=== PATIENT | female | born 1980 | race Caucasian/White ===

== ENCOUNTER 2024-03-24 08:14 | Outpatient (OUT) | payer MEDICAID, SELFPAY | END 2024-03-24 08:15 | disposition home or self-care (01) | PROVIDERS: PCP Family Medicine; Visit Provider Obstetrics & Gynecology | DX: R10.2 Pelvic and perineal pain (principal); R39.9 Unspecified symptoms and signs involving the genitourinary system | CPT/HCPCS: 87086 ==

== ENCOUNTER 2024-04-18 08:09 | Outpatient (OUT) | payer MEDICAID, SELFPAY ==
--- OUTSIDE RECORDS SUMMARY | 2024-04-18 08:16 | XMS_ITS | CCD ---
Author Organization [facility] Care Team Providers Care Tattooer Name Role Phone MARIE BERKOWITZ Consulting Unavailable EMILY MARIE A Attending Unavailable EMILY, MARIE A Admitting Unavailable EMILY, MARIE A Primary Care Unavailable Marie Berkowitz MD Primary Care Provider EMILY MARIE A Primary Care Unavailable MANUELA ESPOSITO Attending Unavailable MANUELA ESPOSITO Attending Unavailable MANUELA ESPOSITO Referring Unavailable BERKOWITZ, MARIE A Primary Care Unavailable MANUELA ESPOSITO Attending Unavailable MANUELA ESPOSITO Referring Unavailable BERKOWITZ, MARIE A Primary Care Unavailable BERKOWITZ, MARIE A Referring Unavailable BERKOWITZ, MARIE A Primary Care Unavailable NESSA KELLEY Referring Unavailable BERKOWITZ, MARIE A Primary Care Unavailable ELLY LUNA Attending Unavailable ELLY LUNA Attending Unavailable Problems Problem Classification Problem Date Documented Da te Episodic/Chronic Abdominal pain (3 sources) Pelvic and perineal pain; Translations: [Flank pain] Onset: 02-08-2024 Episodic Anxiety disorders (1 source) Generalized anxiety disorder; Translations: [Generalized anxiety disorder] Onset: 01-03-2020 01-03-2020 Chronic Benign neoplasm of uterus (1 source) Leiomyoma of uterus, unspecified; Translations: [Leiomyoma of uterus, unspecified] Onset: 02-08-2024 Episodic Fever of unknown origin (1 source) Fever, unspecified; Translations: [FEVER UNSPECIFIED] Onset: 06-20-2020 Episodic Headache; including migraine (1 source) Headache; including migraine; Translations: [HEADACHE UNSPECIFIED] Onset: 06-20-2020 Immunizations and screening for infectious disease (3 sources) Contact with and (suspected) exposure to other viral communicable diseases; Translations: [CONTCT EXPS OTH VIRL COMMUNICABL DZ] Onset: 06-11-2020 Episodic Mood disorders (1 source) Mild major depression, single episode; Translations: [Major depressive disorder, single episode, mild] Onset: 01-03-2020 01-03-2020 Chronic Other non-traumatic joint disorders (1 source) Pain in left hip; Translations: [Pain in left hip] Onset: 02-29-2024 Episodic Other upper respiratory infections (1 source) Acute pharyngitis, unspecified; Translations: [ACUTE PHARYNGITIS UNSPECIFIED] Onset: 06-20-2020 Episodic Residual codes; unclassified (1 source) Pain, unspecified; Translations: [PAIN UNSPECIFIED] Onset: 06-20-2020 Unclassified (1 source) COVID-19; Translations: [COVID-19] Onset: 06-20-2020 Unclassified (1 source) Low back pain, unspecified; Translations: [Low back pain, unspecified] Onset: 02-29-2024 Results Test Name Value Interpretation Reference Range Facil ity XR HIP LT 2-3 VIEWS W OR WO PELVISon 03-01-2024 XR HIP LT 2-3 VIEWS W OR WO PELVIS XR HIP LT 2-3 VIEWS W OR WO PELVIS History: Left hip pain Exam/Technique: AP pelvis and AP and frog-leg views of the left hip were obtained. Comparison: None Findings: There is no evidence for an acute osseous abnormality. No significant degenerative changes are seen. No destructive processes are identified. IMPRESSION: Normal pelvis and left hip. Finalized by Catalino Wilkins MD on 03/01/2024 1:20 PM Normal [facility] XR SPINE LUMBAR 2 OR 3 VWSon 03-01-2024 XR SPINE LUMBAR 2 OR 3 VWS XR SPINE LUMBAR 2 OR 3 VWS CLINICAL INFORMATION: Low back pain, unspecified back pain laterality, unspecified chronicity, unspecified whether sciatica present TECHNIQUE: XR SPINE LUMBAR 2 OR 3 VWS 3 views lumbar spine were obtained. Disc spaces are preserved. Endplates appear intact. No acute fracture. Sacral ala unremarkable. Solitary somewhat prominent loops of small bowel project over the left mid abdomen IMPRESSION:. No acute osseous abnormality. Solitary nonspecific prominent loop of small bowel within left mid abdomen. Finalized by Virgilio Corona MD on 03/01/2024 11:20 AM Normal [facility] BASIC METABOLIC PANLon 07-22 -2024 Anion gap [Moles/Vol] 9 mmol/L Normal 5-15 [facility] Comment on above: Performed By: #### B MARIBEL DOE #### [facility] ([id number]) [address] [place] [address] 33504 Calcium [Mass/Vol] 8.6 mg/dL Normal 8.5-10.5 [facility] Comment on above: Performed By: #### B NADER, CBCA #### [facility] ([id number]) [address] [place] [address] 27740 Chloride [Moles/Vol] 103 mmol/L Normal 98-109 [facility] Comment on above: Performed By: #### B NADER, CBCA #### [facility] ([id number]) [address] [place] [address] 04780 CO2 [Moles/Vol] 24 mmol/L Normal 22-32 [facility] Comment on above: Performed By: #### B NADER CBCA #### [facility] ([id number]) [address] [place] [address] 33423 Creatinine [Mass/Vol] 0.70 mg/dL Normal 0.40-1.00 [facility] Comment on above: Result Comment: METH OD TRACEABLE TO IDMS STANDARD Performed By: #### B NADER CBCA #### [facility] ([id number]) [address] [place] [address] 46201 eGFR (CKD-EPI) NON-RACE DEPENDENT >90 Normal >59 [facility] Comment on above: Result Comment: Reported eGFR is based on the CKD-EPI 2020 equation that does not use a race coefficient. Performed By: #### B NADER, CBCA #### [facility] ([id number]) [address] [place] [address] 41729 Glucose [Mass/Vol] 115 mg/dL High 65-99 [facility] Comment on above: Performed By: #### B MP, CBCA #### [facility] ([id number]) [address] [place] [address] 86588 Potassium [Moles/Vol] 3.9 mmol/L Normal 3.5-5.0 [facility] Comment on above: Result Comment: SPEC IMEN HEMOLYZED, RESULTS INCREASED Performed By: #### B MP, CBCA #### [facility] ([id number]) [address] [place] [address] 80594 Sodium [Moles/Vol] 136 mmol/L Normal 134-146 [facility] Comment on above: Performed By: #### B MP, CBCA #### [facility] ([id number]) [address] [place] [address] 10638 Urea nitrogen [Mass/Vol] 21 mg/dL Normal 5-23 [facility] Comment on above: Performed By: #### B MP, CBCA #### [facility] ([id number]) [address] [place] [address] [place] [address] CBC AND AUTO DIFFon 02-08-20 24 ABSOLUTE BASOPHIL 0.1 X10E9/L Normal 0.0-0.2 [facility] Comment on above: Performed By: #### B MP, CBCA #### [facility] ([id number]) [address] [place] [address] [place] [address] ABSOLUTE NEUTROPHIL 5.9 X10E9/L Normal 1.5-6.6 [facility] Comment on above: Performed By: #### B MP, CBCA #### [facility] ([id number]) [address] [place] [address] 15202 Basophils/100 WBC (Bld) 1.0 % Normal [facility] Comment on above: Performed By: #### B MP, CBCA #### [facility] ([id number]) [address] [place] [address] 32768 Eosinophils (Bld) [#/Vol] 0.1 10*3/uL Normal 0.0-0.4 [facility] Comment on above: Performed By: #### B MP, CBCA #### [facility] ([id number]) [address] [place] [address] 61150 Eosinophils/100 WBC (Bld) 1.4 % Normal [facility] Comment on above: Performed By: #### B MP, CBCA #### [facility] ([id number]) [address] [place] [address] 80743 Erythrocyte distribution width (RBC) [Ratio] 13.2 % Normal 11.5-15.0 [facility] Comment on above: Performed By: #### B NADER, CBCA #### [facility] ([id number]) [address] [place] [address] 90500 Hematocrit (Bld) [Volume fraction] 39.0 % Normal 35-47 [facility] Comment on above: Performed By: #### B NADER, CBCA #### [facility] ([id number]) [address] [place] [address] 48066 Hemoglobin (Bld) [Mass/Vol] 13.7 g/dL Normal 11.7-15.5 [facility] Comment on above: Performed By: #### B MP, CBCA #### [facility] ([id number]) [address] [place] [address] 65401 Lymphocytes (Bld) [#/Vol] 2.7 10*3/uL Normal 1.0-3.5 [facility] Comment on above: Performed By: #### B MP, CBCA #### [facility] ([id number]) [address] [place] [address] 54776 Lymphocytes/100 WBC (Bld) 28.9 % Normal [facility] Comment on above: Performed By: #### B MP, CBCA #### [facility] ([id number]) [address] [place] [address] 01695 MCH (RBC) [Entitic mass] 30.3 pg Normal 27-34 [facility] Comment on above: Performed By: #### B MP, CBCA #### [facility] ([id number]) [address] [place] [address] 64919 MCHC (RBC) [Mass/Vol] 35.2 g/dL Normal 32-36 [facility] Comment on above: Performed By: #### B MP, CBCA #### [facility] ([id number]) [address] [place] [address] 08342 MCV (RBC) [Entitic vol] 86 fL Normal 80-100 [facility] Comment on above: Performed By: #### B MP, CBCA #### [facility] ([id number]) [address] [place] [address] 31351 Monocytes (Bld) [#/Vol] 0.5 10*3/uL Normal 0-0.9 [facility] Comment on above: Performed By: #### B MP, CBCA #### [facility] ([id number]) [address] [place] [address] 41409 Monocytes/100 WBC (Bld) 5.2 % Normal [facility] Comment on above: Performed By: #### B MP, CBCA #### [facility] ([id number]) [address] [place] [address] 93280 Neutrophils/100 WBC (Bld) 63.5 % Normal [facility] Comment on above: Performed By: #### B MP, CBCA #### [facility] ([id number]) [address] [place] [address] 81967 Platelet mean volume (Bld) [Entitic vol] 7.8 fL Normal 7-12 [facility] Comment on above: Performed By: #### B MP, CBCA #### [facility] ([id number]) [address] [place] [address] 68066 Platelets (Bld) [#/Vol] 365 10*3/uL Normal 150-450 [facility] Comment on above: Performed By: #### B MP, CBCA #### [facility] ([id number]) [address] [place] [address] 28285 RBC COUNT 4.53 X10E12/L Normal 3.80-5.20 [facility] Comment on above: Performed By: #### B MP, CBCA #### [facility] ([id number]) [address] [place] [address] 76528 WBC (Bld) [#/Vol] 9.3 10*3/uL Normal 4.0-11.0 [facility] Comment on above: Performed By: #### B MP, CBCA #### [facility] ([id number]) [address] [place] [address] ABDOMEN AND PELVIS WO CON Ton 02-08-2024 CT ABDOMEN AND PELVIS WO CONT CT ABDOMEN AND PELVIS WO CONT CLINICAL INFORMATION: Abdominal/flank pain, stone suspected. TECHNIQUE: CT Abdomen and Pelvis without intravenous contrast. All CT scans at this facility use dose modulation, iterative reconstruction, and/or weight based dosing when appropriate to reduce radiation dose to as low as reasonably achievable. COMPARISON: 01/03/2023. FINDINGS: Assessment in the absence of intravenous contrast is suboptimal, especially with respect to vasculature, metastatic disease, and infectious precesses [if clinically relevant]. Despite this constraint, best attempt is made: No acute findings lower thorax. Marked hepatic steatosis, nodular area of fatty sparing in the left hepatic lobe adjacent to falciform ligament, 4.6 cm, additional nodular hyperdense lesion within segment 8, 1.4 cm. No overt morphologic features of cirrhosis. Normal spleen, adrenal glands, pancreas. Distended gallbladder, without adjacent inflammatory change. Unremarkable uterus. No adnexal mass. No dilatation or wall thickening the bowel. Normal appendix. No free fluid or fluid collections. No aggressive osseous lesions. Degenerative changes left greater than right sacroiliac joints. Fatty periumbilical hernia. IMPRESSION: * Marked hepatic steatosis, finding is nonspecific but may be seen in setting of toxicity, such as from alcohol. Multifocal nodular areas of relative fatty sparing [notably within segment 3, adjacent to falciform ligament, 4.6 cm]. Presumed underlying lesions, such as adenomas or focal nodular hyperplasia . Recommend abdomen MR, specifically with Eovist. * Distended gallbladder, possibly related to prolonged postprandial status, no adjacent inflammatory change to definitively suggest acute cholecystitis [however early cholecystitis is possible]. If clinically indeterminate, recommend HIDA. Finalized by Moises Carrasco MD on 02/08/2024 12:13 PM Normal [facility] HCG ( test) Ql (U)o n 02-08-2024 Beta HCG ( test) Ql (U) Negative Normal [facility] Comment on above: Performed By: #### 2 106-3 #### [facility] ([id number]) [address] [place] [address] 69078 URN MACROSCOPIC NURon 2023 BILIRUBIN VIRGIL Negative Normal [facility] Comment on above: Performed By: #### N UM #### [facility] ([id number]) [address] [place] [address] 06770 BLOOD/HGB VIRGIL Small Abnormal [facility] Comment on above: Performed By: #### N UM #### [facility] ([id number]) [address] [place] [address] 59819 GLUCOSE VIRGIL Negative Normal [facility] Comment on above: Performed By: #### N UM #### [facility] ([id number]) [address] [place] [address] 11908 KETONES VIRGIL Negative Normal [facility] Comment on above: Performed By: #### N UM #### [facility] ([id number]) [address] [place] [address] 26314 LEUKOCYTE ESTERASE VIRGIL Negative Normal NEG [facility] Comment on above: Performed By: #### N UM #### [facility] ([id number]) [address] [place] [address] 17191 NITRITE VIRGIL Negative Normal NEG [facility] Comment on above: Performed By: #### N UM #### [facility] ([id number]) [address] [place] [address] 95123 PH VIRGIL 6.0 Normal 5.0-8.5 [facility] Comment on above: Performed By: #### N UM #### [facility] ([id number]) [address] [place] [address] 59328 PROTEIN VIRGIL Negative Normal NEG [facility] Comment on above: Performed By: #### N UM #### [facility] ([id number]) [address] [place] [address] 62932 SPECIFIC GRAVITY VIRGIL >=1.030 Normal 1.003-1.035 [facility] Comment on above: Performed By: #### N UM #### [facility] ([id number]) [address] [place] [address] 47979 UROBILINOGEN VIRGIL 0.2 eu/dL Normal <1.1 [facility] Comment on above: Performed By: #### N UM #### [facility] ([id number]) [address] [place] [address] 47586 US PELVIC WITH TRANSVAGINAL AND DUPLEXon 02-08-2024 US PELVIC WITH TRANSVAGINAL AND DUPLEX US PELVIC WITH TRANSVAGINAL AND DUPLEX CLINICAL INFORMATION: left pelvic pain, Evaluate for Ovarian Torsion. TECHNIQUE: Real-time transabdominal and transvaginal sonographic evaluation of the pelvis was performed with john scale and color flow imaging. Transabdominal imaging performed to evaluate for extra adnexal pelvic pathology. Transvaginal imaging performed for better delineation of the adnexal and endometrial contents. Real time john scale, color flow imaging and duplex spectral Doppler waveform analysis evaluation was performed of the major arterial inflow and venous outflow structures of the ovaries with arterial and venous spectral waveforms obtained and reviewed in view of the clinical history of left pelvic pain, Evaluate for Ovarian Torsion . Duplex spectral Doppler document arterial and venous spectral waveforms documented within the major arterial inflow and venous outflow of both ovaries. Arterial and venous Doppler duplex spectral waveforms were evaluated. COMPARISON: 01/01/2023 FINDINGS: Uterus measured 11.5 x 5.0 x 6.0 cm in size. There is a fibroid with measuring 5.0 x 4.3 x 4.5 cm in size previously measuring 3.2 x 2.3 x 2.6 cm in size. The endometrium measures 6 mm in thickness. There are nabothian cysts in the cervix. The right ovary measures 3.1 x 1.7 2.1 cm in size and left ovary measure 1.6 x 1.4 x 1.5 cm in size. The arterial and venous waveforms are within normal limits. There is no evidence of ovarian torsion. No free fluid is seen IMPRESSION: * No evidence of ovarian torsion. * Uterine fibroid increased in size when compared to the prior study Finalized by Christine Albarado DO on 02/08/2024 11:21 AM Normal [facility] COVID-19 PCRon 06-13-2020 SARS-CoV-2, GRACE Detected Abnormal Not Detected [facility] Comment on above: Result Comment: This nucleic acid amplification test was developed and its performance characteristics determined by [facility]. Nucleic acid amplification tests include PCR and TMA. This test has not been FDA cleared or approved. This test has been authorized by FDA under an Emergency Use Authorization (EUA). This test is only authorized for the duration of time the declaration that circumstances exist justifying the authorization of the emergency use of in vitro diagnostic tests for detection of SARS-CoV-2 virus and/or diagnosis of COVID-19 infection under section 564(b)(1) of the Act, 21 U.S.C. 360bbb-3(b) (1), unless the authorization is terminated or revoked sooner. When diagnostic testing is negative, the possibility of a false negative result should be considered in the context of a patient's recent exposures and the presence of clinical signs and symptoms consistent with COVID-19. An individual without symptoms of COVID-19 and who is not shedding SARS-CoV-2 virus would expect to have a negative (not detected) result in this assay. Performed By: #### C VDPCR #### [facility] [address], [place] [address] Lily Valencia Encounters Encounter Date Encounter Type Care Provider Facility Start: 04-07-2024 End: 04-07-2024 ambulatory ELLY JEREMY Not Available Start: 03-07-2024 End: 03-07-2024 ambulatory ELLY JEREMY Not Available Start: 02-29-2024 End: 02-29-2024 ambulatory [facility] Start: 02-08-2024 End: 02-09-2024 Emergency department patient visit [facility] Start: 02-08-2024 End: 02-09-2024 Emergency department patient visit [facility] Start: 02-08-2024 End: 02-08-2024 Emergency department patient visit [facility] Start: 07-16-2023 Telephone encounter No Pcp No [facility] Start: 06-11-2020 End: 06-12-2020 Patient encounter procedure [facility] Facility:H1 Plan of Treatment Date Care Activity Detail Author Start: 06-29-2024 Adult BMI Screening Adult BMI Screen ing [facility] Start: 02-07-2024 DTaP,Tdap and Td Vaccines (2 - Td or Tdap) DTaP,Tdap and Td Vaccines (2 - Td or Tdap) [facility] Start: 01-02-2024 Tobacco Screening Tobacco Screening [facility] Start: 03-20-2023 COVID-19 Vaccine ( season) COVID-19 Vaccine () [facility] Start: 03-20-2023 Influenza vaccination Influenza Vacc ine [facility] Start: 2002 Screening for malign ant neoplasm of cervix Pap Smear [facility] Start: 1999 Adult BMI Follow Up Plan Adult BMI Follow Up Plan [facility] Start: 1993 [facility] Immunization Date Immunization Notes Care Provider Fa cility 11-20-2020 COVID-19, mRNA, LNP- S, PF, 100mcg/0.5mL Dose No No Pcp [facility] 10-23-2020 COVID-19, mRNA, LNP- S, PF, 100mcg/0.5mL Dose No No Pcp [facility] 05-14-2018 influenza virus vacc ine, unspecified formulation No No Pcp [facility] Payers Date Payer Category Payer Medicaid [employer] MEDICAID [employer] [facility] MEDICAID [id number] 2023-[facility] [phone] [address] [address] [place] [address] [id number] 2023 Medicaid [id number] 1981 Unknown [id number] 1981 Unknown [id number] 1981 Unknown [id number] 1981 Unknown [id number] 1981 Unknown [id number] 1981 Unknown [id number] 1981 Unknown [id number] 1981 Unknown [id number] 1959 Unknown [id number] Social History Date Type Detail Facility Start: 09-07-2020 Tobacco smoking stat us NHIS Never smoked tobacco [facility] Start: 09-07-2020 Tobacco use and exposure Smoke less tobacco non-user [facility] Start: 01-01-2023 Alcohol intake Current drinke r of alcohol (finding) [facility] Start: 07-31-2020 End: 01-01-2023 History of Social function [facility] Start: 07-31-2020 End: 01-01-2023 Tobacco use panel [facility] Housing Instability Unknown [facility] Start: 09-07-2020 Alcohol Comment socially [facility] Start: 1980 Sex Assigned At Not on file P [facility] Note 07-16-2023 Telephone Encounter - Kendy Castro - 07/16/2023 11:13 AM EST Note Date & Type Note Facility 07-16-2023 Miscellaneous Notes Formattin g of this note might be different from the original. Spoke with Pt regarding referral sent from Marie Berkowitz advising her insurance, [employer], is out of network with [facility]. Advised Pt we could still see her, but she may receive a bill. Advised she can call Medicaid & switch to any other Managed Health Plan, but not sure which ones her PCP accepts. Pt states she will call & find out. Also offered to contact PCP's Office to let them know Pt's insurance is out of network & have them refer her to another [employer]. documented in this encounter [facility] Telephone encounter Note 07-16-2023 Telephone Encounter - Kendy Castro - 07/16/2023 11:13 AM EST Note Date & Type Note Facility 07-16-2023 Telephone encount er Note Spoke with Pt regarding referral sent from Marie Berkowitz advising her insurance, [employer], is out of network with [facility]. Advised Pt we could still see her, but she may receive a bill. Advised she can call Medicaid & switch to any other Managed Health Plan, but not sure which ones her PCP accepts. Pt states she will call & find out. Also offered to contact PCP's Office to let them know Pt's insurance is out of network & have them refer her to another [employer]. [employer] Instructions Note Date & Type Note Facility Instructions Not on filedocumented in this en counter [employer] [facility] Summary Purpose Family History No Family History Records FoundNo Family History Records FoundNo Family History Records Found Advance Directives No Advanced Directives Records FoundNo Advanced Directives Records FoundNo Advanced Directives Records Found Additional Source Comments INFORMATION SOURCE (unrecogn ized section and content) DATE CREATED AUTHOR 06/20/2020 [facility] DATE CREATED AUTHOR AUTHOR'S ORGANIZ ATION 03/02/2024 [facility] DATE CREATED AUTHOR AUTHOR'S ORGANIZ ATION 04/09/2024 [facility] Specialists EPIC Care Teams (unrecognized sec tion and content) Tattooer Relationship Specialty Start Date End Date Marie Berkowitz MD [address] [place] [phone] PCP - General Family Medicine 02/25/17 FOR RECORDS PERTAINING TO PATIENTS WHO ARE OR HAVE BEEN ENROLLED IN A CHEMICAL DEPENDENCY/SUBSTANCEABUSE PROGRAM, SOME INFORMATION MAY BE OMITTED. This clinical summary was aggregated from multiple sources. Caution should be exercised in using it in the provision of clinical care. This summary normalizes information from multiple sources, and as a consequence, information in this document may materially change the coding, format and clinical context of patient data. In addition, data may be omitted in some cases. CLINICAL DECISIONS SHOULD BE BASED ON THE PRIMARY CLINICAL RECORDS. [employer] provides no warranty or guarantee of the accuracy or completeness of information in this document.
== END 2024-04-18 08:10 | disposition home or self-care (01) ==
LOC: PST 08:10
PROVIDERS: PCP Family Medicine; Visit Provider Obstetrics & Gynecology
DX: Z01.818 Encounter for other preprocedural examination (principal); R10.2 Pelvic and perineal pain; D25.9 Leiomyoma of uterus, unspecified

== ENCOUNTER 2024-04-29 09:07 | Day surgery (SDC) | payer MEDICAID, SELFPAY ==
[2024-04-18 08:40] VITALS: BP 111/73; PULSE 72; TEMP 36.3; O2SAT 99; BMI 34.7
[2024-04-29] VITALS (18 sets, daily range): BP systolic 96–121; BP diastolic 52–82; PULSE 54–81; TEMP 36.1–36.4; O2SAT 93–100; BMI 34.7
--- OUTSIDE RECORDS SUMMARY | 2024-04-29 09:11 | XMS_ITS | CCD ---
Author Organization [facility] Care Team Providers Care Manager Hris Name Role Phone MARIE BERKOWITZ Consulting Unavailable [...] Wilkins MD on 03/01/2024 1:20 PM Normal [facility] XR SPINE LUMBAR 2 OR 3 VWSon [...] Corona MD on 03/01/2024 11:20 AM Normal [facility] BASIC METABOLIC PANLon 07-22 -2024 Anion gap [Moles/Vol] 9 mmol/L Normal 5-15 [facility] Comment on above: Performed By: #### B MARIBEL DOE #### [facility] ([id number]) [address] [place] [address] 33797 Calcium [Mass/Vol] 8.6 mg/dL Normal 8.5-10.5 [facility] Comment on above: Performed By: #### B NADER, CBCA #### [facility] ([id number]) [address] [place] [address]149 Chloride [Moles/Vol] 103 mmol/L Normal 98-109 [facility] Comment on above: Performed By: #### B NADER, CBCA #### [facility] ([id number]) [address] [place] [address] 07684 CO2 [Moles/Vol] 24 mmol/L Normal 22-32 [facility] Comment on above: Performed By: #### B NADER CBCA #### [facility] ([id number]) [address] [place] [address]0950 Creatinine [Mass/Vol] 0.70 mg/dL Normal 0.40-1.00 [facility] Comment on above: Result Comment: METH OD TRACEABLE TO IDMS STANDARD Performed By: #### B NADER CBCA #### [facility] ([id number]) [address] [place] [address] 23159 eGFR (CKD-EPI) NON-RACE DEPENDENT >90 Normal >59 [facility] Comment on above: Result Comment: Reported eGFR is based on the CKD-EPI 2020 equation that does not use a race coefficient. Performed By: #### B NADER, CBCA #### [facility] ([id number]) [address] [place] [address] 95484 Glucose [Mass/Vol] 115 mg/dL High 65-99 [facility] Comment on above: Performed By: #### B MP, CBCA #### [facility] ([id number]) [address] [place] [address] 49291 Potassium [Moles/Vol] 3.9 mmol/L Normal 3.5-5.0 [facility] Comment on above: Result Comment: SPEC IMEN HEMOLYZED, RESULTS INCREASED Performed By: #### B MP, CBCA #### [facility] ([id number]) [address] [place] [address] 59209 Sodium [Moles/Vol] 136 mmol/L Normal 134-146 [facility] Comment on above: Performed By: #### B MP, CBCA #### [facility] ([id number]) [address] [place] [address] 22866 Urea nitrogen [Mass/Vol] 21 mg/dL Normal 5-23 [facility] Comment on above: Performed By: #### B MP, CBCA #### [facility] ([id number]) [address] [place] [address] [place] [address] CBC AND AUTO DIFFon 02-08-20 24 ABSOLUTE BASOPHIL 0.1 X10E9/L Normal 0.0-0.2 [facility] Comment on above: Performed By: #### B MP, CBCA #### [facility] ([id number]) [address] [place] [address] [place] [address] ABSOLUTE NEUTROPHIL 5.9 X10E9/L Normal 1.5-6.6 [facility] Comment on above: Performed By: #### B MP, CBCA #### [facility] ([id number]) [address] [place] [address] 26251 Basophils/100 WBC (Bld) 1.0 % Normal [facility] Comment on above: Performed By: #### B MP, CBCA #### [facility] ([id number]) [address] [place] [address] 02948 Eosinophils (Bld) [#/Vol] 0.1 10*3/uL Normal 0.0-0.4 [facility] Comment on above: Performed By: #### B MP, CBCA #### [facility] ([id number]) [address] [place] [address] 40614 Eosinophils/100 WBC (Bld) 1.4 % Normal [facility] Comment on above: Performed By: #### B MP, CBCA #### [facility] ([id number]) [address] [place] [address] 17674 Erythrocyte distribution width (RBC) [Ratio] 13.2 % Normal 11.5-15.0 [facility] Comment on above: Performed By: #### B NADER, CBCA #### [facility] ([id number]) [address] [place] [address] 76710 Hematocrit (Bld) [Volume fraction] 39.0 % Normal 35-47 [facility] Comment on above: Performed By: #### B NADER, CBCA #### [facility] ([id number]) [address] [place] [address] 83967 Hemoglobin (Bld) [Mass/Vol] 13.7 g/dL Normal 11.7-15.5 [facility] Comment on above: Performed By: #### B MP, CBCA #### [facility] ([id number]) [address] [place] [address] 13371 Lymphocytes (Bld) [#/Vol] 2.7 10*3/uL Normal 1.0-3.5 [facility] Comment on above: Performed By: #### B MP, CBCA #### [facility] ([id number]) [address] [place] [address] 32916 Lymphocytes/100 WBC (Bld) 28.9 % Normal [facility] Comment on above: Performed By: #### B MP, CBCA #### [facility] ([id number]) [address] [place] [address] 01585 MCH (RBC) [Entitic mass] 30.3 pg Normal 27-34 [facility] Comment on above: Performed By: #### B MP, CBCA #### [facility] ([id number]) [address] [place] [address] 13204 MCHC (RBC) [Mass/Vol] 35.2 g/dL Normal 32-36 [facility] Comment on above: Performed By: #### B MP, CBCA #### [facility] ([id number]) [address] [place] [address] 03878 MCV (RBC) [Entitic vol] 86 fL Normal 80-100 [facility] Comment on above: Performed By: #### B MP, CBCA #### [facility] ([id number]) [address] [place] [address] 65963 Monocytes (Bld) [#/Vol] 0.5 10*3/uL Normal 0-0.9 [facility] Comment on above: Performed By: #### B MP, CBCA #### [facility] ([id number]) [address] [place] [address] 26318 Monocytes/100 WBC (Bld) 5.2 % Normal [facility] Comment on above: Performed By: #### B MP, CBCA #### [facility] ([id number]) [address] [place] [address] 48344 Neutrophils/100 WBC (Bld) 63.5 % Normal [facility] Comment on above: Performed By: #### B MP, CBCA #### [facility] ([id number]) [address] [place] [address] 06828 Platelet mean volume (Bld) [Entitic vol] 7.8 fL Normal 7-12 [facility] Comment on above: Performed By: #### B MP, CBCA #### [facility] ([id number]) [address] [place] [address] 37533 Platelets (Bld) [#/Vol] 365 10*3/uL Normal 150-450 [facility] Comment on above: Performed By: #### B MP, CBCA #### [facility] ([id number]) [address] [place] [address] 55753 RBC COUNT 4.53 X10E12/L Normal 3.80-5.20 [facility] Comment on above: Performed By: #### B MP, CBCA #### [facility] ([id number]) [address] [place] [address] 11905 WBC (Bld) [#/Vol] 9.3 10*3/uL Normal 4.0-11.0 [facility] Comment on above: Performed By: #### B MP, CBCA #### [facility] ([id number]) [address] [place] [address] ABDOMEN AND PELVIS WO CON Ton [...] Carrasco MD on 02/08/2024 12:13 PM Normal [facility] HCG ( test) Ql (U)o n 02-08-2024 Beta HCG ( test) Ql (U) Negative Normal [facility] Comment on above: Performed By: #### 2 106-3 #### [facility] ([id number]) [address] [place] [address] 05884 URN MACROSCOPIC NURon 2023 BILIRUBIN VIRGIL Negative Normal [facility] Comment on above: Performed By: #### N UM #### [facility] ([id number]) [address] [place] [address] 72287 BLOOD/HGB VIRGIL Small Abnormal [facility] Comment on above: Performed By: #### N UM #### [facility] ([id number]) [address] [place] [address] 32280 GLUCOSE VIRGIL Negative Normal [facility] Comment on above: Performed By: #### N UM #### [facility] ([id number]) [address] [place] [address] 16714 KETONES VIRGIL Negative Normal [facility] Comment on above: Performed By: #### N UM #### [facility] ([id number]) [address] [place] [address] 83579 LEUKOCYTE ESTERASE VIRGIL Negative Normal [facility] Comment on above: Performed By: #### N UM #### [facility] ([id number]) [address] [place] [address] 74435 NITRITE VIRGIL Negative Normal [facility] Comment on above: Performed By: #### N UM #### [facility] ([id number]) [address] [place] [address] 32573 PH VIRGIL 6.0 Normal 5.0-8.5 [facility] Comment on above: Performed By: #### N UM #### [facility] ([id number]) [address] [place] [address] 01852 PROTEIN VIRGIL Negative Normal NEG [facility] Comment on above: Performed By: #### N UM #### [facility] ([id number]) [address] [place] [address] 50569 SPECIFIC GRAVITY VIRGIL >=1.030 Normal 1.003-1.035 [facility] Comment on above: Performed By: #### N UM #### [facility] ([id number]) [address] [place] [address] 57659 UROBILINOGEN VIRGIL 0.2 eu/dL Normal <1.1 [facility] Comment on above: Performed By: #### N UM #### [facility] ([id number]) [address] [place] [address] 08309 US PELVIC WITH TRANSVAGINAL AND DUPLEXon 02-08-2024 [...] Albarado DO on 02/08/2024 11:21 AM Normal [facility] COVID-19 PCRon 06-13-2020 SARS-CoV-2, GRACE Detected Abnormal Not Detected [facility] Comment on above: Result Comment: This nucleic acid amplification test was developed and its performance characteristics determined by [facility]. Nucleic acid amplification tests include PCR and [...] assay. Performed By: #### C VDPCR #### [facility] [address] [place], [place] [address] Lily Valencia Encounters Encounter Date Encounter Type Care Provider Facility Start: 04-07-2024 End: 04-07-2024 ambulatory ELLY JEREMY Not Available Start: 03-07-2024 End: 03-07-2024 ambulatory ELLY JEREMY Not Available Start: 02-29-2024 End: 02-29-2024 ambulatory [facility] Start: 02-08-2024 End: 02-09-2024 Emergency department patient visit [facility] Start: 02-08-2024 End: 02-09-2024 Emergency department patient visit [facility] Start: 02-08-2024 End: 02-08-2024 Emergency department patient visit [facility] Start: 07-16-2023 Telephone encounter No Pcp No [facility] Start: 06-11-2020 End: 06-12-2020 Patient encounter procedure [facility] Facility:H1 Plan of Treatment Date Care Activity Detail Author Start: 06-29-2024 Adult BMI Screening Adult BMI Screen ing [facility] Start: 02-07-2024 DTaP,Tdap and Td Vaccines (2 - Td or Tdap) DTaP,Tdap and Td Vaccines (2 - Td or Tdap) [facility] Start: 01-02-2024 Tobacco Screening Tobacco Screening [facility] Start: 03-20-2023 COVID-19 Vaccine ( season) COVID-19 Vaccine () [facility] Start: 03-20-2023 Influenza vaccination Influenza Vacc ine [facility] Start: 2002 Screening for malign ant neoplasm of cervix Pap Smear [facility] Start: 1999 Adult BMI Follow Up Plan Adult BMI Follow Up Plan [facility] Start: 1993 [facility] Immunization Date Immunization Notes Care Provider Fa cility 11-20-2020 COVID-19, mRNA, LNP- S, PF, 100mcg/0.5mL Dose No No Pcp [facility] 10-23-2020 COVID-19, mRNA, LNP- S, PF, 100mcg/0.5mL Dose No No Pcp [facility] 05-14-2018 influenza virus vacc ine, unspecified formulation No No Pcp [facility] Payers Date Payer Category Payer Medicaid [employer] MEDICAID [employer] [facility] MEDICA[facility] [id number] 2023-[facility] [phone] [address] [address] [place] [address] [id number] 2023 Medicaid [id number] 1980 Unknown [id number] 1980 Unknown [id number] 1981 Unknown [id number] 1981 Unknown [id number] 1981 Unknown [id number] 1981 Unknown [id number] 1981 Unknown [id number] 1981 Unknown [id number] 1959 Unknown [id number] Social History Date Type Detail Facility Start: 09-07-2020 Tobacco smoking stat us NHIS Never smoked tobacco [facility] Start: 09-07-2020 Tobacco use and exposure Smoke less tobacco non-user [facility] Start: 01-01-2023 Alcohol intake Current drinke r of alcohol (finding) [facility] Start: 07-31-2020 End: 01-01-2023 History of Social function [facility] Start: 07-31-2020 End: 01-01-[address] [facility] Housing Instability Unknown [facility] Start: 09-07-2020 Alcohol Comment socially [facility] Start: 1980 Sex Assigned At Not on file P [facility] Note 07-16-2023 Telephone Encounter - Kendy [...] & have them refer her to another DIRECTOR OF SECURITIES AND REAL ESTATE. documented in this encounter [facility] Telephone encounter Note 07-16-2023 Telephone Encounter [...] & have them refer her to another DIRECTOR OF SECURITIES AND REAL ESTATE. [facility]Line Instructions Note Date & Type Note Facility Instructions Not on filedocumented in this en counter invi System Summary Purpose Family History No Family History Records FoundNo Family History Records FoundNo Family History Records Found Advance Directives No Advanced Directives Records FoundNo Advanced Directives Records FoundNo Advanced Directives Records Found Additional Source Comments INFORMATION SOURCE (unrecogn ized section and content) DATE CREATED AUTHOR 06/20/2020 [facility] DATE CREATED AUTHOR AUTHOR'S ORGANIZ ATION 03/02/2024 [facility] DATE CREATED AUTHOR AUTHOR'S ORGANIZ ATION 04/09/2024 [facility] Special[facility] EPIC Care Teams (unrecognized sec tion and content) Manager Hris Relationship Specialty Start Date End Date Marie Berkowitz MD [address] [place] [phone] PCP - General Family Medicine 02/25/17 [...] BE BASED ON THE PRIMARY CLINICAL RECORDS. [employer] provides no warranty or guarantee of the accuracy or completeness of information in this document.
[2024-04-29 09:17] LABS: Basophils Absolute Auto 0.1 10^3/uL (0.0-0.1); Eosinophils Absolute Auto 0.2 10^3/uL (0.0-0.7); Eosinophils Percent Auto 1.8 % (0.9-7.0); Hematocrit 37.2 % (36.0-48.0); Hemoglobin 12.7 g/dL (12.0-16.0); Immature Granulocytes Abs Auto 0.02 10^3/uL (0.00-0.03); Immature Granulocytes Pct Auto 0.2 % (0.0-0.5); Lymphocytes Absolute Auto 1.8 10^3/uL (1.2-3.8); Lymphocytes Percent Auto 22.1 % (20.5-60.0); Mean Corpuscular HGB Conc 34.1 g/dL (29.9-35.2); Mean Corpuscular Hemoglobin 29.7 pg (26.7-34.0); Mean Corpuscular Volume 87.1 fL (81.0-99.0); Mean Platelet Volume 8.7 fL (9.5-13.5); Monocytes Absolute Auto 0.4 10^3/uL (0.3-0.8); Monocytes Percent Auto 4.9 % (1.7-12.0); Neutrophils Absolute Auto 5.8 10^3/uL (1.4-6.5); Platelet Count 351 10^3/uL (150-450); Red Blood Count 4.27 10^6/uL (4.20-5.40); Red Cell Distribution Width 12.1 % (11.0-15.0); White Blood Count 8.3 10^3/uL (4.0-11.0)
[2024-04-29 09:39] LABS: HCG Quantitative <1 mIU/mL
[2024-04-29] MEDS: 0.9 % SODIUM CHLORIDE 500 ML 50 ML IV (10:23)
--- NOTE | 2024-04-29 10:29 | PC.NURSE ---
Dr. Escobedo spoke to patient regarding her piercings. Patient has a nose ring, bilateral nipple and clitoral cabrera piercing that she declines to remove even after educating. The risks of alonzo to these areas was reviewed and patient made aware that she is taking responsibility of the risk and the facility will not be liable for any injury related to not removing the piercings as requested. Nose ring and bilateral nipple ring were covered with tape.
--- NOTE | 2024-04-29 10:39 | PC.NURSE ---
Dr. Garcia also in to see patient and reviewed risks of not removing piercings.
--- NOTE | 2024-04-29 12:00 | P.ON_ITS ---
Brief Operative Note Date of procedure: 04/29/24 Pre-op diagnosis general: pelvic pain, failed ablation Post-op diagnosis: same as pre-op Procedure: NAME OF PROCEDURE: [ D&c hysteroscopy, diagnostic laparoscopy] PROCEDURE: The patient was taken back to the Operating Room where she was prepped and draped in normal sterile fashion after being placed under general anesthesia without difficulty. She was also placed in the dorsal lithotomy position. A weighted speculum was placed in the patient?s vagina. The anterior lip of the cervix was identified and grasped with a single tooth tenaculum. The patient?s uterus was then sounded roughly to [? 8] cm. The patient was then gently dilated using Hegar dilators. The hysteroscope was passed through the patient?s cervix into the uterus. Both ostia were identified. fluffy appearing endometrium. No gross evidence of malignancy, no gross evidence of polyps or fibroids. The myosure apparatus was placed through the scope, The myosure was engaged and end ometrial curretting were removed along with endometrial polyp, The hysteroscope was then removed from the uterus. The endometrial curettings were sent out to pathology. The single tooth tenaculum was then removed from the patient's anterior lip of the cervix where excellent hemostasis was noted. All instruments were removed from the patient?s vagina. A sponge stick was placed into the patient's vagina. Attention was turned to the patient's abdomen, where a small umbilical incision was made. The fascia was tented using Mauricio clamps and the fascia was entered sharply. Confirmation of intraabdominal placement of the 10 mm port was confirmed under direct visualization using a laparoscope. The patient's abdomen was then insufflated using CO2 gas with approximately 4 liters. A second port was placed left laterally, this was done under direct visualization with a 5 mm port. Survey of the patient's abdomen demonstrated normal liver and gallbladder. Survey of the patient's pelvic anatomy demonstrated normal appearing rt and lt ovary and enlarged tubes as well as abnormally shaped uterus with large fundal fibroid. No endometrial implants could be noted, no evidence of any pelvic disease was seen, normal appearing pelvic cavity. All instruments were removed from the patient's abdomen. The patient's abdomen was deinsufflated of CO2 gas. The patient tolerated the procedure well. Sponge stick was removed from the patient's vagina. The patient's infraumbilical fascia was closed using #0 Vicryl on a GI needle. The patient's skin was closed laterally and infraumbilically us ing 4-0 Vicryl. The patient tolerated the procedure well. Sponge, lap and needle counts were correct x 2. The patient was taken to Recovery Room in stable condition. Anesthesia: BRITTNI Surgeon: Adalberto Garcia Interior Surface Insulation Worker: Thuy Noe Estimated blood loss (mL): 5 Pathology: none sent Condition: stable Disposition: PACU Urinary Catheter Management Urinary Catheter Management Urethral: Cath placed during this visit: no
[2024-04-29] MEDS: HYDROCODONE/ACET 5-325 MG TABLET 1 TAB PO (12:49)
[2024-04-29] MEDS: HYDROMORPHONE HCL 1 MG/ML CARTRIDGE IV (12:49)
[2024-04-29] MEDS: MEPERIDINE HCL/PF 25 MG/ML VIAL IM (13:02)
[2024-04-29] MEDS: PROMETHAZINE HCL 25 MG/ML VIAL IM (13:03)
== END 2024-04-29 14:45 | disposition home or self-care (01) ==
PROVIDERS: PCP Family Medicine; Visit Provider Obstetrics & Gynecology
PROC: (CPT 840; principal; 2024-04-29 10:10)
DX: R10.2 Pelvic and perineal pain (principal); D25.9 Leiomyoma of uterus, unspecified; N70.11 Chronic salpingitis; Q51.9 Congenital malformation of uterus and cervix, unspecified; N99.85 Post endometrial ablation syndrome; N84.0 Polyp of corpus uteri; Z87.891 Personal history of nicotine dependence
CPT/HCPCS: 49320; 58558; 36415; 84702; 85025; 88305; J1100; J1171; J1885; J2175; J2250; J2405; J2704; J3010

== ENCOUNTER 2024-05-02 08:41 | Emergency (ER) | payer MEDICAID, SELFPAY ==
[2024-05-02] VITALS (17 sets, daily range): BP systolic 114–143; BP diastolic 65–124; PULSE 83–117; O2SAT 94–100; BMI 32.8
--- NOTE | 2024-05-02 08:45 | CT_ITS ---
The [address] [address] Patient Name: CRUZITO BELTRAN MRN: [id number] date: 1980 Sex: F Assigned Patient Location: ER Current Patient Location: ER Accession/Order Number: [id number] Exam Date: 05/02/2024 09:33 Report Date: 05/02/2024 10:52 At the request of: RICKY BEASLEY Procedure: CT abdomen pelvis w con EXAM: CT abdomen pelvis w con HISTORY: post-op pain COMPARISON: None. TECHNIQUE: Following intravenous administration of 100 cc Omnipaque 300, axial soft tissue windows of the abdomen and pelvis were performed with coronal and sagittal reformats. CT dose reduction technique was used including Automated Exposure Control. Findings: Abdomen: There is fatty infiltration of the liver. Within segment 8 there is a 2.0 cm enhancing lesion. There is a larger enhancing lesion within segment 3 measuring approximately 4.8 cm. The gallbladder, spleen, pancreas, adrenal glands and kidneys are unremarkable. The bilateral ureters are nondilated. Evaluation of the bowel is limited given the absence of oral contrast. No bowel obstruction. The appendix is not dilated. The aorta is normal caliber. No enlarged abdominal nodes or free abdominal fluid. There are are postsurgical changes involving the midline anterior abdominal wall. No abscess. Pelvis: Unremarkable bladder. The uterus is present. There is a cystic region within the uterus measuring 6.0 x 4.4 cm. No enlarged pelvic lymph nodes. Trace amount of free pelvic fluid. No aggressive sclerotic or lytic osseous lesions. CT/CT abdomen pelvis w con IMPRESSION: 1. Complex fluid collection/cystic region within the uterus. Findings may relate to an abscess or hematoma. If indicated, this could be further evaluated with pelvic ultrasound. 2. Enhancing lesions within the liver. If indicated, this could be further evaluated with contrast-enhanced MRI and palpation nonemergent basis. Electronically authenticated by: CAITLIN SAUCEDO Date: 05/02/2024 10:52
[2024-05-02] MEDS: HYDROMORPHONE HCL 1 MG/ML CARTRIDGE IV ×2 (08:48→12:52)
[2024-05-02] MEDS: ONDANSETRON PF 4 MG/2 ML VIAL IV ×2 (08:48→13:00)
--- OUTSIDE RECORDS SUMMARY | 2024-05-02 08:54 | XMS_ITS | CCD ---
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 Name Role Phone MARIE BERKOWITZ Consulting Unavailable EMILY MARIE A Attending Unavailable EMILY, MARIE A Admitting Unavailable EMILY, MARIE A Primary Care Unavailable Marie Berkowitz MD Primary Care Provider [phone] EMILY MARIE A Primary Care Unavailable MANUELA [...] Wilkins MD on 03/01/2024 1:20 PM Normal [facility] XR SPINE LUMBAR 2 OR [...] Corona MD on 03/01/2024 11:20 AM Normal [facility] BASIC METABOLIC PANLon 07-22 -2024 Anion gap [Moles/Vol] 9 mmol/L Normal 5-15 [facility] Comment on above: Performed By: #### B MRAIBEL DOE #### [facility] ([id number]) [address] [place] [address] 03304 Calcium [Mass/Vol] 8.6 mg/dL Normal 8.5-10.5 [facility] Comment on above: Performed By: #### B NADER, CBCA #### [facility] ([id number]) [address] [place] [address] 13770 Chloride [Moles/Vol] 103 mmol/L Normal 98-109 [facility] Comment on above: Performed By: #### B NADER, CBCA #### [facility] ([id number]) [address] [place] [address] 07888 CO2 [Moles/Vol] 24 mmol/L Normal 22-32 [facility] Comment on above: Performed By: #### B NADER CBCA #### [facility] ([id number]) [address] [place] [address] 61313 Creatinine [Mass/Vol] 0.70 mg/dL Normal 0.40-1.00 [facility] Comment on above: Result Comment: METH OD TRACEABLE TO IDMS STANDARD Performed By: #### B NADER CBCA #### [facility] ([id number]) [address] [place] [address] 29759 eGFR (CKD-EPI) NON-RACE DEPENDENT >90 Normal >59 [facility] Comment on above: Result Comment: Reported eGFR is based on the CKD-EPI 2020 equation that does not use a race coefficient. Performed By: #### B NADER, CBCA #### [facility] ([id number]) [address] [place] [address] 54129 Glucose [Mass/Vol] 115 mg/dL High 65-99 [facility] Comment on above: Performed By: #### B MP, CBCA #### [facility] ([id number]) [address] [place] [address] 99324 Potassium [Moles/Vol] 3.9 mmol/L Normal 3.5-5.0 [facility] Comment on above: Result Comment: SPEC IMEN HEMOLYZED, RESULTS INCREASED Performed By: #### B MP, CBCA #### [facility] ([id number]) [address] [place] [address] 42330 Sodium [Moles/Vol] 136 mmol/L Normal 134-146 [facility] Comment on above: Performed By: #### B MP, CBCA #### [facility] ([id number]) [address] [place] [address] 88532 Urea nitrogen [Mass/Vol] 21 mg/dL Normal 5-23 [facility] Comment on above: Performed By: #### B MP, CBCA #### [facility] ([id number]) [address] [place] [address] [place] [address] CBC AND AUTO DIFFon 02-08-20 24 ABSOLUTE BASOPHIL 0.1 X10E9/L Normal 0.0-0.2 [facility] Comment on above: Performed By: #### B MP, CBCA #### [facility] ([id number]) [address] [place] [address] [place] [address] ABSOLUTE NEUTROPHIL 5.9 X10E9/L Normal 1.5-6.[address] [facility] Comment on above: Performed By: #### B MP, CBCA #### [facility] ([id number]) [address] [place] [address] 06610 Basophils/100 WBC (Bld) 1.0 % Normal [facility] Comment on above: Performed By: #### B MP, CBCA #### [facility] ([id number]) [address] [place] [address] 04950 Eosinophils (Bld) [#/Vol] 0.1 10*3/uL Normal 0.0-0.4 [facility] Comment on above: Performed By: #### B MP, CBCA #### [facility] ([id number]) [address] [place] [address] 61981 Eosinophils/100 WBC (Bld) 1.4 % Normal [facility] Comment on above: Performed By: #### B MP, CBCA #### [facility] ([id number]) [address] [place] [address] 58870 Erythrocyte distribution width (RBC) [Ratio] 13.2 % Normal 11.5-15.0 [facility] Comment on above: Performed By: #### B NADER, CBCA #### [facility] ([id number]) [address] [place] [address] 11453 Hematocrit (Bld) [Volume fraction] 39.0 % Normal 35-47 [facility] Comment on above: Performed By: #### B NADER, CBCA #### [facility] ([id number]) [address] [place] [address] 62521 Hemoglobin (Bld) [Mass/Vol] 13.7 g/dL Normal 11.7-15.5 [facility] Comment on above: Performed By: #### B MP, CBCA #### [facility] ([id number]) [address] [place] [address] 43615 Lymphocytes (Bld) [#/Vol] 2.7 10*3/uL Normal 1.0-3.5 [facility] Comment on above: Performed By: #### B MP, CBCA #### [facility] ([id number]) [address] [place] [address] 38174 Lymphocytes/100 WBC (Bld) 28.9 % Normal [facility] Comment on above: Performed By: #### B MP, CBCA #### [facility] ([id number]) [address] [place] [address] 80694 MCH (RBC) [Entitic mass] 30.3 pg Normal 27-34 [facility] Comment on above: Performed By: #### B MP, CBCA #### [facility] ([id number]) [address] [place] [address] 59331 MCHC (RBC) [Mass/Vol] 35.2 g/dL Normal 32-36 [facility] Comment on above: Performed By: #### B MP, CBCA #### [facility] ([id number]) [address] [place] [address] 06548 MCV (RBC) [Entitic vol] 86 fL Normal 80-100 [facility] Comment on above: Performed By: #### B MP, CBCA #### [facility] ([id number]) [address] [place] [address] 65302 Monocytes (Bld) [#/Vol] 0.5 10*3/uL Normal 0-0.9 [facility] Comment on above: Performed By: #### B MP, CBCA #### [facility] ([id number]) [address] [place] [address] 96536 Monocytes/100 WBC (Bld) 5.2 % Normal [facility] Comment on above: Performed By: #### B MP, CBCA #### [facility] ([id number]) [address] [place] [address] 99680 Neutrophils/100 WBC (Bld) 63.5 % Normal [facility] Comment on above: Performed By: #### B MP, CBCA #### [facility] ([id number]) [address] [place] [address] 22116 Platelet mean volume (Bld) [Entitic vol] 7.8 fL Normal 7-12 [facility] Comment on above: Performed By: #### B MP, CBCA #### [facility] ([id number]) [address] [place] [address] 41233 Platelets (Bld) [#/Vol] 365 10*3/uL Normal 150-450 [facility] Comment on above: Performed By: #### B MP, CBCA #### [facility] ([id number]) [address] [place] [address] 45078 RBC COUNT 4.53 X10E12/L Normal 3.80-5.20 [facility] Comment on above: Performed By: #### B MP, CBCA #### [facility] ([id number]) [address] [place] [address] 75324 WBC (Bld) [#/Vol] 9.3 10*3/uL Normal 4.0-11.0 [facility] Comment on above: Performed By: #### B MP, CBCA #### [facility] ([id number]) [address] [place] [address] ABDOMEN AND PELVIS WO CON Ton [...] Carrasco MD on 02/08/2024 12:13 PM Normal [facility] HCG ( test) Ql (U)o n 02-08-2024 Beta HCG ( test) Ql (U) Negative Normal [facility] Comment on above: Performed By: #### 2 106-3 #### [facility] ([id number]) [address] [place] [address] 02954 URN MACROSCOPIC NURon 2023 BILIRUBIN VIRGIL Negative Normal [facility] Comment on above: Performed By: #### N UM #### [facility] ([id number]) [address] [place] [address] 59547 BLOOD/HGB VIRGIL Small Abnormal [facility] Comment on above: Performed By: #### N UM #### [facility] ([id number]) [address] [place] [address] 79908 GLUCOSE VIRGIL Negative Normal [facility] Comment on above: Performed By: #### N UM #### [facility] ([id number]) [address] [place] [address] 08843 KETONES VIRGIL Negative Normal [facility] Comment on above: Performed By: #### N UM #### [facility] ([id number]) [address] [place] [address] 51343 LEUKOCYTE ESTERASE VIRGIL Negative Normal [facility] Comment on above: Performed By: #### N UM #### [facility] ([id number]) [address] [place] [address] 31824 NITRITE VIRGIL Negative Normal [facility] Comment on above: Performed By: #### N UM #### [facility] ([id number]) [address] [place] [address] 84448 PH VIRGIL 6.0 Normal 5.0-8.5 [facility] Comment on above: Performed By: #### N UM #### [facility] ([id number]) [address] [place] [address] 68054 PROTEIN VIRGIL Negative Normal [facility] Comment on above: Performed By: #### N UM #### [facility] ([id number]) [address] [place] [address] 38147 SPECIFIC GRAVITY VIRGIL >=1.030 Normal 1.003-1.035 [facility] Comment on above: Performed By: #### N UM #### [facility] ([id number]) [address] [place] [address] 81400 UROBILINOGEN VIRGIL 0.2 eu/dL Normal <1.1 [facility] Comment on above: Performed By: #### N UM #### [facility] ([id number]) [address] [place] [address] 90979 US PELVIC WITH TRANSVAGINAL AND DUPLEXon 02-08-2024 [...] Albarado DO on 02/08/2024 11:21 AM Normal [facility] COVID-19 PCRon 06-13-2020 SARS-CoV-2, GRACE Detected Abnormal Not Detected [facility] Comment on above: Result Comment: This nucleic acid amplification test was developed and its performance characteristics determined by [email or web address]. Nucleic acid amplification tests include PCR and [...] assay. Performed By: #### C VDPCR #### [facility] [address] [place], [place] [address] Lily Valencia Encounters Encounter Date Encounter Type Care Provider Facility Start: 04-07-2024 End: 04-07-2024 ambulatory ELLY JEREMY Not Available Start: 03-07-2024 End: 03-07-2024 ambulatory ELLY JEREMY Not Available Start: 02-29-2024 End: 02-29-2024 ambulatory [facility] Start: 02-08-2024 End: 02-09-2024 Emergency department patient visit [facility] Start: 02-08-2024 End: 02-09-2024 Emergency department patient visit [facility] Start: 02-08-2024 End: 02-08-2024 Emergency department patient visit [facility] Start: 07-16-2023 Telephone encounter No Pcp [facility] Start: 06-11-2020 End: 06-12-2020 Patient encounter procedure COUNT INCLUDES [facility] Facility:H1 Plan of Treatment Date Care Activity Detail Author Start: 06-29-2024 Adult BMI Screening Adult BMI Screen ing [facility] Start: 02-07-2024 DTaP,Tdap and Td Vaccines (2 - Td or Tdap) DTaP,Tdap and Td Vaccines (2 - Td or Tdap) [facility] Start: 01-02-2024 Tobacco Screening Tobacco Screening [facility] Start: 03-20-2023 COVID-19 Vaccine ( season) COVID-19 Vaccine () [facility] Start: 03-20-2023 Influenza vaccination Influenza Vacc ine [facility] Start: 2002 Screening for malign ant neoplasm of cervix Pap Smear [facility] Start: 1999 Adult BMI Follow Up Plan Adult BMI Follow Up Plan [facility] Start: 1993 [facility] Immunization Date Immunization Notes Care Provider Fa cility 11-20-2020 COVID-19, mRNA, LNP- S, PF, 100mcg/0.5mL Dose No No Pcp [facility] 10-23-2020 COVID-19, mRNA, LNP- S, PF, 100mcg/0.5mL Dose No No Pcp [facility] 05-14-2018 influenza virus vacc ine, unspecified formulation No No Pcp [facility] Payers Date Payer Category Payer Medicaid [employer] MEDICAID [employer] [facility] MEDICAID [id number] 2023[facility] [phone] [address] [address] [place] [address] [id number] 2023 Medicaid [id number] 1981 Unknown [id number] 1981 Unknown [id number] 1981 Unknown [id number] 1981 Unknown [id number] 1981 Unknown [id number] 1981 Unknown [id number] 1981 Unknown [id number] 1981 Unknown [id number] 1959 Unknown [id number] Social History Date Type Detail Facility Start: 09-07-2020 Tobacco smoking stat us NHIS Never smoked tobacco [facility] Start: 09-07-2020 Tobacco use and exposure Smoke less tobacco non-user [facility] Start: 01-01-2023 Alcohol intake Current drinke r of alcohol (finding) [facility] Start: 07-31-2020 End: 01-01-2023 History of Social function [facility] Start: 07-31-2020 End: 01-01-2023 Tobacco use panel [facility] Housing Instability Unknown [facility] Start: 09-07-2020 Alcohol Comment socially [facility] Start: 1980 Sex Assigned At Not on file P 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 [employer] Instructions Note Date & Type Note Facility Instructions Not on filedocumented in this en counter [employer] [facility] Summary Purpose Family History No Family History Records FoundNo Family History Records FoundNo Family History Records Found Advance Directives No Advanced Directives Records FoundNo Advanced Directives Records FoundNo Advanced Directives Records Found Additional Source Comments INFORMATION SOURCE (unrecogn ized section and content) DATE CREATED AUTHOR 06/20/2020 [facility] DATE CREATED AUTHOR AUTHOR'S ORGANIZ ATION 03/02/2024 [facility] DATE CREATED AUTHOR AUTHOR'S ORGANIZ ATION 04/09/2024 [facility] EPIC Care Teams (unrecognized sec tion and content) 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 [employer] provides no warranty or guarantee of the accuracy or completeness of information in this document.
[2024-05-02] MEDS: KETOROLAC TROMETHAMINE 30 MG/ML VIAL IVP (08:58)
[2024-05-02 09:02] LABS: Basophils Absolute Auto 0.1 10^3/uL (0.0-0.1); Basophils Percent Auto 0.8 % (0.2-2.0); Eosinophils Absolute Auto 0.2 10^3/uL (0.0-0.7); Eosinophils Percent Auto 2.1 % (0.9-7.0); Hemoglobin 13.6 g/dL (12.0-16.0); Immature Granulocytes Abs Auto 0.03 10^3/uL (0.00-0.03); Immature Granulocytes Pct Auto 0.3 % (0.0-0.5); Mean Corpuscular HGB Conc 34.9 g/dL (29.9-35.2); Mean Corpuscular Volume 86.1 fL (81.0-99.0); Mean Platelet Volume 9.1 fL (9.5-13.5); Monocytes Absolute Auto 0.6 10^3/uL (0.3-0.8); Monocytes Percent Auto 5.7 % (1.7-12.0); Neutrophils Absolute Auto 5.8 10^3/uL (1.4-6.5); Neutrophils Percent Auto 60.1 % (43.0-75.0); Platelet Count 380 10^3/uL (150-450); Red Blood Count 4.53 10^6/uL (4.20-5.40); White Blood Count 9.7 10^3/uL (4.0-11.0)
[2024-05-02] MEDS: HYDROMORPHONE HCL 0.5 MG/0.5 ML SYRINGE IV (09:09)
[2024-05-02 09:12] LABS: HCG Qualitative NEGATIVE (NEGATIVE); Internal Control Within Normal Limits
[2024-05-02 09:18] LABS: Anion Gap 16.1
[2024-05-02 09:20] LABS: Lactate/Lactic Acid 1.6 mmol/L (0.4-2.0)
[2024-05-02 09:21] LABS: Alanine Aminotransferase 55 U/L (14-59); Albumin Globulin Ratio 0.9; Albumin Level 3.5 g/dL (3.4-5.0); Alkaline Phosphatase 63 U/L (46-116); Aspartate Amino Transferase 29 U/L (15-37); BUN Creatinine Ratio 21.1; Bilirubin Total 0.4 mg/dL (0.2-1.0); Calcium 8.9 mg/dL (8.5-10.1); Carbon Dioxide 22.8 mmol/L (21.0-32.0); Chloride 100 mmol/L (98-107); Estimated GFR (African America >60 (>=60 mL/min/1.73m^2); Estimated GFR (Non-African Ame >60 (>=60 mL/min/1.73m^2); Globulin 3.9 g/dL; Glucose 116 mg/dL (74-106); Potassium 3.9 mmol/L (3.5-5.1); Sodium 135 mmol/L (136-145); Total Protein 7.4 g/dL (6.4-8.2); Troponin I High Sensitivity <4.0 pg/mL (4.0-51.3)
--- NOTE | 2024-05-02 09:44 | ED.GENADUL1 ---
HPI HPI - General Adult General Chief complaint: Abdominal Pain Stated complaint: ABDOMINAL PAIN, POST SURGERY Time Seen by Provider: 05/02/24 08:43 Source: family Mode of arrival: Wheelchair Limitations: no limitations History of Present Illness HPI narrative: 43-year-old female to the emergency department with chief complaint of severe pelvic pain. Patient reports that she had a diagnostic lap with Dr. Garcia on 04/28. She was told that she had a large fibroid on her uterus and that she was going to need to be referred to [facility] for hysterectomy. Patient reports pain is a 10 out of 10. It started this morning. She denies any fever, sweats, chills. No nausea or vomiting. No vaginal bleeding or discharge. Related Data Home Medications ?Medication ?Instructions ?Recorded ?Confirmed valacyclovir 1 gram tablet 1,000 mg PO Q12H PRN herpes 04/18/24 04/29/24 nitrofurantoin 100 mg PO BID 04/29/24 04/29/24 monohydrate/macrocrystals 100 mg capsule (Macrobid) phenazopyridine 100 mg tablet 100 mg PO Q8H PRN pain 04/29/24 04/29/24 Previous Rx's ?Medication ?Instructions ?Recorded hydrocodone 5 mg-acetaminophen 325 1 tab PO Q4H PRN pain 4 days #16 04/29/24 mg tablet tabs ibuprofen 800 mg tablet 800 mg PO Q8H PRN pain 14 days #40 04/29/24 tabs Allergies Allergy/AdvReac Type Severity Reaction Status Date / Time No Known Drug Allergies Allergy Verified 05/02/24 08:49 Opioid HPI Opioid Management Most Recent Opioid Data: Last Pain Scale 10 05/02/24 12:52 05/02/24 Last Pain Assessment 04/29/24 14:20 Last MAR Pain Assessment 05/02/24 12:52 Review of Systems ROS Status of ROS 10 or more systems reviewed and unremarkable except as noted in history and below [facility] Medical History (Updated 05/02/24 @ 14:30 by Fareed Morgan MD) Uterine fibroid ?D25.9 - Leiomyoma of uterus, unspecified (ICD-10) Herpes ?B00.9 - Herpesviral infection, unspecified (ICD-10) History of blood transfusion ?Z92.89 - Personal history of other medical treatment (ICD-10) Anemia ?D64.9 - Anemia, unspecified (ICD-10) Anxiety ?F41.9 - Anxiety disorder, unspecified (ICD-10) COVID-19 ?U07.1 - COVID-19 (ICD-10) Migraine ?G43.909 - Migraine, unspecified, not intractable, without status migrainosus (ICD-10) Pelvic pain ?R10.2 - Pelvic and perineal pain (ICD-10) Encounter for removal of skin lesion ?L98.9 - Disorder of the skin and subcutaneous tissue, unspecified (ICD-10) Lipoma ?D17.9 - Benign lipomatous neoplasm, unspecified (ICD-10) Surgical History (Updated 04/18/24 @ 08:33 by Caprice Welsh NP) History of dilation and curettage ?Z98.890 - Other specified postprocedural states (ICD-10) History of section ?Z98.891 - History of uterine scar from previous surgery (ICD-10) History of section ?Z98.891 - History of uterine scar from previous surgery (ICD-10) History of endometrial ablation ?Z98.890 - Other specified postprocedural states (ICD-10) Family History (Updated 04/18/24 @ 08:33 by Caprice Welsh NP) Other Family history of diabetes mellitus Family history of heart disease Family history of hypertension Social History (Updated 04/18/24 @ 08:28 by Caprice Welsh NP) Within the past year, how often did you have a drink containing alcohol: monthly or less Smoking status: Former smoker Non-prescribed substance use: cannabis (any form) Previous occupational history: [employer] Highest level of school completed/degree received: high school graduate Little interest or pleasure in doing things: not at all Feeling down, depressed, or hopeless: not at all Exam Narrative Exam Narrative: VITALS: I have reviewed the triage vital signs. GENERAL: Uncomfortable appearing adult female holding lower abdomen rolling around on ED exam cart NEURO: Alert and oriented. Moves all extremities. Face is symmetric and expressive. EYES: PERRL. No scleral icterus or conjunctival injection. No discharge. HENT: Normocephalic, atraumatic. Hearing is grossly intact. Nares grossly patent and without discharge. Mucous membranes moist. NECK: No JVD. Patient moves neck without restriction. CARDIO: Rhythm regular. Normal rate. No murmur, rub, or gallop. Pulses equal bilaterally in the upper and lower extremity. No lower extremity edema. PULM: Lungs clear to auscultation in all wick. No wheezes, rales, or rhonchi. No conversational dyspnea. No splinting, stridor, or accessory muscle use. GI/: Abdomen is soft. No appreciable tenderness. No rebound or guarding. Normoactive bowel sounds. EXTREMITIES: Symmetric muscle bulk. No joint swelling. No clubbing, cyanosis, or deformity. SKIN: Warm and dry. Normal turgor. No rash or lesions appreciated. PSYCH: Tearful Constitutional Vital Signs, click to edit/add: Last Vital Signs Pulse 89 05/02/24 10:30 Resp 24 H 05/02/24 08:49 BP 127/73 05/02/24 13:03 Pulse Ox 97 05/02/24 14:25 O2 Del Method Room Air 05/02/24 08:49 Course Vital Signs Vital signs: Vital Signs Pulse Rate 101 H 05/02/24 08:49 Respiratory Rate 24 H 05/02/24 08:49 Blood Pressure 141/98 H 05/02/24 08:49 Pulse Oximetry 97 05/02/24 08:49 Oxygen Delivery Method Room Air 05/02/24 08:49 Pulse Rate 89 05/02/24 10:30 Respiratory Rate 24 H 05/02/24 08:49 Blood Pressure 127/73 05/02/24 13:03 Pulse Oximetry 97 05/02/24 14:25 Oxygen Delivery Method Room Air 05/02/24 08:49 Medical Decision Making [facility] Narrative Medical decision making narrative: 43-year-old female to the emergency department with chief complaint of lower pelvic pain. Vital stable, the patient is afebrile. Dilaudid and Zofran ordered for her severe symptoms. Basic labs, CT scan are ordered. I did review Dr. Garcia's operative note, there is essentially diagnosis via laparoscopy but no intervention on a large fibroid uterus. Significant amount of distress but her abdominal examination is benign. She is accompanied by very concerned family members. Lab work is unremarkable. test is negative. Patient continued to have very severe pain. She required frequent reevaluation. Family remains very concerned. She was given several doses of pain medications with only a modest relief of pain. CT scan showed her known uterine mass but did not properly characterize. Ultrasound was ordered and is concerning for an infarcted fibroid. Patient continues to be in intractable pain. I offered a ketamine drip and she declined. I did call and discussed with Dr. Garcia. He recommended transfer this patient to [facility] for hysterectomy. Case was discussed with Dr. Ohara via telephone. He accepted the patient to their service. Patient was transferred to [facility] for further care. Medical Records Medical records reviewed: Yes I reviewed the patient's medical records Lab Data Lab results reviewed: Yes I reviewed the patient's lab results Labs: Lab Results 05/02/24 Range/Units 08:50 WBC 9.7 (4.0-11.0) 10^3/uL RBC 4.53 (4.20-5.40) 10^6/uL Hgb 13.6 (12.0-16.0) g/dL Hct 39.0 (36.0-48.0) % MCV 86.1 (81.0-99.0) fL MCH 30.0 (26.7-34.0) pg MCHC 34.9 (29.9-35.2) g/dL RDW 12.0 (11.0-15.0) % Plt Count 380 (150-450) 10^3/uL MPV 9.1 L (9.5-13.5) fL Neut % (Auto) 60.1 (43.0-75.0) % Lymph % (Auto) 31.0 (20.5-60.0) % [place] % (Auto) 5.7 (1.7-12.0) % Eos % (Auto) 2.1 (0.9-7.0) % Baso % (Auto) 0.8 (0.2-2.0) % Neut # (Auto) 5.8 (1.4-6.5) 10^3/uL Lymph # (Auto) 3.0 (1.2-3.8) 10^3/uL [place] # (Auto) 0.6 (0.3-0.8) 10^3/uL Eos # (Auto) 0.2 (0.0-0.7) 10^3/uL Baso # (Auto) 0.1 (0.0-0.1) 10^3/uL Abs Immat Gran (auto) 0.03 (0.00-0.03) 10^3/uL Imm/Tot Granulo (auto) 0.3 (0.0-0.5) % Sodium 135 L (136-145) mmol/L Potassium 3.9 (3.5-5.1) mmol/L Chloride 100 (98-107) mmol/L Carbon Dioxide 22.8 (21.0-32.0) mmol/L Anion Gap 16.1 BUN 16.0 (7.0-18.0) mg/dL Creatinine 0.76 (0.55-1.02) mg/dL Est GFR ( Amer) >60 (>=60 mL/min/1.73m^2) Est GFR (Non-Af Amer) >60 (>=60 mL/min/1.73m^2) BUN/Creatinine Ratio 21.1 Glucose 116 H (74-106) mg/dL Lactate 1.6 (0.4-2.0) mmol/L Calcium 8.9 (8.5-10.1) mg/dL Total Bilirubin 0.4 (0.2-1.0) mg/dL AST 29 (15-37) U/L ALT 55 (14-59) U/L Alkaline Phosphatase 63 (46-116) U/L Troponin I High Sens <4.0 L (4.0-51.3) pg/mL Total Protein 7.4 (6.4-8.2) g/dL Albumin 3.5 (3.4-5.0) g/dL Globulin 3.9 g/dL Albumin/Globulin Ratio 0.9 Lipase 42.0 (16.0-77.0) U/L Serum HCG, Qual Negative (NEGATIVE) Imaging Data CT head: Radiologist's impression: ITS Impressions Abdomen/Pelvis CT 05/02/24 08:45 IMPRESSION: 1. Complex fluid collection/cystic region within the uterus. Findings may relate to an abscess or hematoma. If indicated, this could be further evaluated with pelvic ultrasound. 2. Enhancing lesions within the liver. If indicated, this could be further evaluated with contrast-enhanced MRI and palpation nonemergent basis. Electronically authenticated by: CAITLIN SAUCEDO Date: 05/02/2024 10:52 Transvaginal US 05/02/24 11:03 IMPRESSION: Homogeneous 6.2 cm posterior myometrial mass with no definite color flow. This is indeterminate Electronically authenticated by: LIONEL AMBROSIO Date: 05/02/2024 12:56 Discharge Plan Discharge Chief Complaint: Abdominal Pain Clinical Impression: Intractable pain, Pelvic pain, Mass of uterus Patient Disposition: [facility] Time of Disposition Decision: 14:30 Discharge Location: [facility] Condition: Good Mode of Transportation: EMS Prescriptions / Home Meds: No Action valacyclovir 1 gram tablet 1,000 mg PO Q12H PRN (Reason: herpes) phenazopyridine 100 mg tablet 100 mg PO Q8H PRN (Reason: pain) nitrofurantoin monohyd/m-cryst [Macrobid] 100 mg capsule 100 mg PO BID Rx Instructions: must administer with a meal/food ibuprofen 800 mg tablet 800 mg PO Q8H PRN (Reason: pain) 14 Days Qty: 40 0RF hydrocodone-acetaminophen 5-325 mg tablet 1 tab PO Q4H PRN (Reason: pain) 4 Days Qty: 16 0RF Print Language: Taiwanese Referrals: MARTHA DIAZ [Primary Care Provider] - 1 week
[2024-05-02] MEDS: ACETAMINOPHEN 1,000 MG/100 ML PREMIX 400 MG IV (09:51)
--- NOTE | 2024-05-02 11:03 | US_ITS ---
The [address] [address] Patient Name: CRUZITO BELTRAN MRN: [id number] date: 1980 Sex: F Assigned Patient Location: ED.MAIN Current Patient Location: ED.MAIN Accession/Order Number: [id number] Exam Date: 05/02/2024 11:39 Report Date: 05/02/2024 12:56 At the request of: RICKY BEASLEY Procedure: US pelvis w/ transvaginal EXAMINATION: US pelvis w/ transvaginal HISTORY: pain COMPARISON: 05/02/2024 CT exam FINDINGS: Transabdominal and transvaginal images The uterus is enlarged in size measuring 11.0 x 5.3 x 6.3 cm. Identified in the posterior myometrium is a large homogeneous well-circumscribed mass measuring 6.2 x 4.4 x 6.0 cm. No definite color flow is identified within this mass Multiple areas of anechoic echogenicity cervix likely representing nabothian cysts The endometrium cannot definitively be seen due to the myometrial mass The ovaries are not visualized Small amount of free pelvic fluid likely physiologic US/US pelvis w/ transvaginal IMPRESSION: Homogeneous 6.2 cm posterior myometrial mass with no definite color flow. This is indeterminate Electronically authenticated by: LIONEL AMBROSIO Date: 05/02/2024 12:56
== END 2024-05-02 15:17 | disposition short-term general hospital (02) ==
PROVIDERS: Emergency Provider Student in an Organized Health Care Education/Training Program; PCP Family Medicine
DX: R10.2 Pelvic and perineal pain (principal); N85.8 Other specified noninflammatory disorders of uterus; Z87.891 Personal history of nicotine dependence
CPT/HCPCS: 36415; 74177; 76830; 76856; 80053; 83605; 83690; 84484; 84703; 85025; 96365; 96375; 96376; 99285; J0131; J1171; J1885; J2405; Q9967